=== PATIENT | female | born 1940 ===

== ENCOUNTER 2017-11-02 09:34 | Inpatient (IN) | payer MEDICARE, OTHER ==
[2017-11-02 09:34] VITALS: BMI 24.1
[2017-11-02] MEDS ORDERED: Iohexol 240 (50 ml) PO STA (09:51)
[2017-11-02] MEDS ORDERED: Sodium Chloride 0.9% 1,000 ML IV ONE ×2 (09:51)
--- NOTE | 2017-11-02 09:51 | C.PDOC ---
History Of Present Illness 77 year old female presents to the emergency department with complaints of mid abdominal pain since yesterday. She reports that the pain comes and goes and is localized. She reports nausea and vomiting, but denies having a bowel movement. She reports a past surgical history of an appendectomy, but denies fever, or UTI symptoms. MID ABD PAIN SINCE YEST. INTERMIT LOCALIZED. +NV. NO BM. PSH APPY. NO FEVER, UTI SX. EXAM MILD DIST NONTOXIC ABD +PERIUM/LOWER ABD TEND SOFT NO R/G NONDIST GOOD TURGOR REMAINDER NEG MDM ABD PAIN NV R/O OBSTRUCT. CT, LABS, PAIN AND ANTIEMETIC RX Time Seen by Provider: 11/02/17 09:43 Chief Complaint (Nursing): Abdominal Pain History Per: Patient History/Exam Limitations: no limitations Onset/Duration Of Symptoms: Days (1) Current Symptoms Are (Timing): Still Present Location Of Pain/Discomfort: Other (mid abdomen) Radiation Of Pain To:: None Quality Of Discomfort: "Pain" Associated Symptoms: Nausea, Vomiting. denies: Fever, Urinary Symptoms Past Medical History Reviewed: Historical Data, Nursing Documentation, Vital Signs Vital Signs: Last Vital Signs Temp 98.3 F 11/02/17 15:02 Pulse 65 11/02/17 15:02 Resp 16 11/02/17 15:02 BP 100/60 11/02/17 15:02 Pulse Ox 98 11/02/17 15:51 - Medical History PMH: Arthritis, Hypercholesterolemia, Hypothyroidism Denies: Chronic Kidney Disease Surgical History: Appendectomy, Cholecystectomy, Endoscopy Family History: States: No Known Family Hx - Social History Hx Alcohol Use: No Hx Substance Use: No - Immunization History Hx Tetanus Toxoid Vaccination: No Hx Influenza Vaccination: No Hx Pneumococcal Vaccination: No Review Of Systems Except As Marked, All Systems Reviewed And Found Negative. Constitutional: Negative for: Fever Gastrointestinal: Positive for: Nausea, Vomiting, Abdominal Pain Genitourinary: Negative for: Dysuria Musculoskeletal: Negative for: Back Pain Physical Exam - Physical Exam Appears: Non-toxic, In Acute Distress (mild) Skin: Warm, Dry, Other (good turgor) Head: Atraumatic, Normacephalic Eye(s): bilateral: Normal Inspection Neck: Normal, Supple Chest: Symmetrical Cardiovascular: Rhythm Regular Respiratory: Normal Breath Sounds, No Rales, No Rhonchi, No Wheezing Gastrointestinal/Abdominal: Soft, Tenderness (periumbilical/lower abdominal tenderness), No Distention, No Guarding, No Rebound Extremity: Normal ROM (all extremities) Neurological/Psych: Oriented x3, Normal Speech, Normal Cognition ED Course And Treatment - Laboratory Results Result Diagrams: 11/02/17 09:56 11/02/17 09:56 O2 Sat by Pulse Oximetry: 98 (RA) Pulse Ox Interpretation: Normal - Radiology CXR: Viewed By Me, Read By Radiologist CXR Interpretation: Yes: No Acute Disease - CT Scan/US US Abdomen Other Rad Studies (CT/US): Read By Radiologist, Radiology Report Reviewed CT/US Interpretation: IMPRESSION: Cholecystectomy. Progress Note: Plan: CT Abdomen and Pelvis with IV Contrast. EKG. CMP. Lipase. Troponin. CBC. CXR One View. Morphine 2mg IVP. NaCl IV Fluids. Zofran 4mg IVP. Urinalysis Progress - Re-Evaluation Re-evaluation Note: 11/02/17 10:57 +ELEV LIPASE. NO PRIOR HO SAME. WILL ALSO ABD US RO ACUTE JOSE 11/02/17 13:00 VIA TRANS US, CT REPORTS PENDING. PS FEELS BETTER S/P MORPHINE. PT ADVISED NEEDS ADMISSION FOR PANCREATITIS. PS CANNOT STAY IN HOSPITAL. PT STRONGLY ADVISED NEED FOR CLOSE MONITORING AND HIGH POTENTIAL FOR CLIN DETERIORATION. STATES VERBAL UNDERSTANDING OF THE RISKS/BENEFITS, STATES NOW AGREES TO ADMISSION. 11/02/17 15:[address] REPORT PENDING 11/02/17 15:50 per radiology, APPENDIX VISUALIZED ON CT. S/P JOSE ON ABD US. THIS IS CONTRARY TO PT'S STATED HO APPENDECTOMY ONLY. PS PMD = NONCPH. - Data Reviewed Data Reviewed: Lab, Diagnostic imaging, EKG, Old records Medical Decision Making Medical Decision Making: ABD PAIN NV R/O OBSTRUCT. CT, LABS, PAIN AND ANTIEMETIC RX Disposition Counseled Patient/Family Regarding: Studies Performed, Diagnosis - Disposition Disposition: HOSPITALIZED Disposition Time: 15:49 Condition: STABLE Forms: [facility] ([place]) - POA Present On Arrival: None - Clinical Impression Clinical Impression: Acute pancreatitis - Scribe Statement The provider has reviewed the documentation as recorded by the Scribe (Omar Castillo) Provider Attestation: All medical record entries made by the Scribe were at my direction and personally dictated by me. I have reviewed the chart and agree that the record accurately reflects my personal performance of the history, physical exam, medical decision making, and the department course for this patient. I have also personally directed, reviewed, and agree with the discharge instructions and disposition. Decision To Admit - Pt Status Changed To: Hospital Disposition Of: Inpatient - Admit Certification Admit to Inpatient:: After my assessment, the patient will require hospitalization for at least two midnights. This is because of the severity of symptoms shown, intensity of services needed, and/or the medical risk in this patient being treated as an outpatient. - InPatient: Physician Admission Certification:: SEE NOTE - . Bed Request Type: Regular Admitting Physician: Naya Samson Patient Diagnosis: Acute pancreatitis
[2017-11-02] MEDS ORDERED: Sodium Chloride 0.9% 1,000 ML ONE ×2 (10:00→18:13)
[2017-11-02] MEDS ORDERED: Iohexol 240 (50 ml) ONE (10:00)
[2017-11-02 10:11] LABS: BASO % 0.1 % (0.0-2.0); EOS % 0.1 % (0.0-4.0); HEMOGLOBIN 12.4 g/dL (11.0-16.0); LYMPH # 0.8 K/uL (1.0-4.3); LYMPH % 6.7 % (20.0-40.0); MEAN CELL VOLUME 94.5 fL (81.0-99.0); MEAN CORPUSCULAR HEMOGLOBIN 32.4 pg (27.0-31.0); MEAN CORPUSCULAR HGB CONC 34.3 g/dL (33.0-37.0); MEAN PLATELET VOLUME 10.1 fL (7.2-11.7); MONO # 0.7 K/uL (0.0-0.8); MONO % 5.4 % (0.0-10.0); NEUT # 10.8 K/uL (1.8-7.0); NEUT % 87.7 % (50.0-75.0); PLATELET COUNT 199 K/uL (130-400); RBC 3.81 Mil/uL (3.80-5.20); RED CELL DISTRIBUTION WIDTH 12.9 % (11.5-14.5); SQUAMOUS EPITHIAL 1 /hpf (0-5); URINE BILIRUBIN 1+ (NEGATIVE); URINE BLOOD 1+ (NEGATIVE); URINE CLARITY Clear (Clear); URINE COLOR Amber (YELLOW); URINE GLUCOSE (UA) NORMAL (Normal); URINE LEUKOCYTE ESTERASE NEG Leu/uL (Negative); URINE PROTEIN 1+ mg/dL (NEGATIVE); WHITE BLOOD COUNT 12.3 K/uL (4.8-10.8)
[2017-11-02 10:15] LABS: ALB/GLOB RATIO 1.4 (1.0-2.1); ALT/SGPT 69 U/L (9-52); AST/SGOT 93 U/L (14-36); BLOOD UREA NITROGEN 18 mg/dL (7-17); CALCIUM 8.8 mg/dl (8.6-10.4); GFR NON-AFRICAN AMERICAN > 60; LIPASE 1000 U/L (23-300)
[2017-11-02 10:47] LABS: BANDS 1 % (0-2); LYMPHOCYTE 8 % (20-40); MONOCYTE 4 % (0-10); NEUTROPHIL 87 % (50-75); PLATELET ESTIMATE NORMAL (NORMAL); TOTAL CELLS COUNTED 100
[2017-11-02 11:26] LABS: VENOUS BLOOD GAS BASE EXCESS 1.7 mmol/L (0.0-2.0); VENOUS BLOOD GAS PCO2 48 mmHg (40-60); VENOUS BLOOD GAS PO2 38 mm/Hg (30-55); VENOUS BLOOD PH 7.37 (7.32-7.43)
[2017-11-02] MEDS ORDERED: Iodixanol 320 mg/ml 150 ml Bottle IV ONE (12:38)
--- NOTE | 2017-11-02 12:51 | US ---
Date of service: 11/02/2017 HISTORY: ABD PAIN RO ACUTE JOSE COMPARISON: None. TECHNIQUE: Sonographic evaluation of the right upper quadrant of the abdomen. FINDINGS: LIVER: Measures 12.2 cm in length. Normal echogenicity of the liver parenchyma. No mass. No intrahepatic bile duct dilatation. GALLBLADDER: Cholecystectomy COMMON BILE DUCT: Measures 5.2 mm. No stones. No dilatation. PANCREAS: Pancreas poorly delineated due to body habitus and bowel gas Unremarkable as visualized. No mass. No ductal dilatation. RIGHT KIDNEY: Measures 10.2 x 4.4 x 4.6 cm in length. Normal echogenicity. No calculus, mass, or hydronephrosis. AORTA: No aneurysmal dilatation. IVC: Unremarkable. OTHER FINDINGS: None . IMPRESSION: Cholecystectomy.
--- NOTE | 2017-11-02 14:02 | RAD ---
Date of service: 11/02/2017 PROCEDURE: CHEST RADIOGRAPH, 1 VIEW HISTORY: Abdominal pain COMPARISON: None available. FINDINGS: LUNGS: Clear. Slight elevation left hemidiaphragm. PLEURA: No pneumothorax or pleural fluid seen. CARDIOVASCULAR: Normal. OSSEOUS STRUCTURES: No significant abnormalities. VISUALIZED UPPER ABDOMEN: Normal. OTHER FINDINGS: None. IMPRESSION: No active disease.
--- NOTE | 2017-11-02 15:30 | CT ---
Date of service: 11/02/2017 PROCEDURE: CT abdomen and pelvis HISTORY: Abdominal pain. Rule out obstruction in a patient with a history of appendectomy. COMPARISON: None. TECHNIQUE: Contiguous axial images of the abdomen and pelvis performed following oral and intravenous injection of approximately 100 cc Visipaque 320 contrast material. Additional 2D sagittal and coronal reformats reformats generated. This CT exam was performed using one or more of the following dose reduction techniques: Automated exposure control, adjustment of the mA and/or kV according to patient size, and/or use of iterative reconstruction technique. Contrast dose: 100 cc Visipaque 320 Radiation dose: Total exam DLP = 401.32 mGy-cm. FINDINGS: LOWER THORAX: Mild passive/dependent type atelectasis both posterior lower lung zones. Heart size is mildly enlarged. No significant pericardial effusion. LIVER: Unremarkable. No gross lesion or ductal dilatation. GALLBLADDER AND BILE DUCTS: Cholecystectomy. PANCREAS: The pancreatic head is slightly a amorphous and edematous in appearance with surrounding mild peripancreatic infiltration in the adjacent mesentery. Findings consistent with pancreatitis. SPLEEN: Spleen exhibits normal size and attenuation pattern. ADRENALS: Slightly enlarged right adrenal gland. KIDNEYS AND URETERS: Unremarkable. No stone or hydronephrosis. BLADDER: Urinary bladder is incompletely distended which may in part account for thick-walled appearance. Correlation with urinalysis recommended to exclude cystitis or UTI. REPRODUCTIVE: Unremarkable. APPENDIX: There may be a short stub of appendectomy remnant BOWEL: Evaluation of the bowel is limited due to incomplete opacification. Stomach is incompletely distended. There are a few small bowel loops that exhibit minimal distention in the left mid and upper abdomen however no evidence of acute mechanical bowel obstruction with oral contrast material seen extending into the colon to the level of the and proximal descending colon. There are scattered colonic diverticula without radiographic evidence of acute diverticulitis. PERITONEUM: Unremarkable. No fluid collection. No free air. The small fat containing bilateral inguinal hernias. LYMPH NODES: Unremarkable. No enlarged lymph nodes. VASCULATURE: Unremarkable. No aortic aneurysm. BONES: Multilevel degenerative spondylosis of the lower thoracic and lumbar spine with mild levoscoliosis. OTHER FINDINGS: None. IMPRESSION: Findings are consistent with mild acute pancreatitis. Findings suggest mild ileus. Diverticulosis without radiographic evidence of acute tear detect colitis. Cholecystectomy.
--- NOTE | 2017-11-02 16:08 | CP.PCM.HP ---
<Kamini EspinoMarcel - Last Filed: 11/02/17 17:36> History of Present Illness - History of Present Illness History of Present Illness: CC: "abdominal pain" HPI: 77 year old female with past medical history Arthritis, thyroid problem, HLD and an enlarged heart presents to the ER (arriving by bus) for abdominal pain. The pain started last night and woke her up from her sleep. She states the pain is mostly located in the left upper abdomen without radiation. She describes the pain as "pain" and she feels like her whole body is achy. She states the pain was so bad today that she could barely walk. She states she feels nauseous and vomited a small amount this morning. She states she also had chills today. This is the first time she has had abdominal pain like this. She states the last thing she ate was fish yesterday. Her last bowel movement was Friday. She also states she has gained weight over the past few months which is being worked up by her PMD. Patient denies fever, chest pain, palpations, shortness of breath, diarrhea, alcohol use, headache or pancreatitis in the past, Patient does not give permission to disclose medical information to her son Trey Lamb PMD: Dr. Wong Davis ([place], [place]) Past Medical History: Arthritis, thyroid problem, HLD - pmd stopped medication, enlarged heart Past Surgical History: cholecystectomy Medications: patient does not know - will need to confirm with PMD as patient does not know pharmacy Allergies: Aspirin - itchy throat Family History: Heart Disease - mom Social History: lives with daughter (Cierra Lamb #[phone]), denies alcohol, smoking or illicit drug use Present on Admission - Present on Admission Any Indicators Present on Admission: No Review of Systems - Constitutional Constitutional: Chills, Weight Gain. absent: Fever, Headache - EENT Eyes: absent: Blurred Vision - Cardiovascular Cardiovascular: absent: Chest Pain, Dyspnea, Palpitations, Pedal Edema, Syncope - Respiratory Respiratory: absent: Dyspnea - Gastrointestinal Gastrointestinal: Abdominal Pain, Constipation, Nausea, Vomiting. absent: Diarrhea - Genitourinary Genitourinary: absent: Dysuria - Musculoskeletal Musculoskeletal: Atrophy. absent: Numbness, Stiffness, Tingling - Neurological Neurological: absent: Dizziness, Tremor, Weakness Past Patient History - Past Medical History & Family History Past Medical History?: Yes - Past Social History Smoking Status: Never Smoked - CARDIAC Hx Hypercholesterolemia: Yes - PULMONARY Hx Respiratory Disorders: No - NEUROLOGICAL Hx Neurological Disorder: No - HEENT Hx HEENT Problems: No - RENAL Hx Chronic Kidney Disease: No - ENDOCRINE/METABOLIC Hx Hypothyroidism: Yes - HEMATOLOGICAL/ONCOLOGICAL Hx Blood Disorders: No - INTEGUMENTARY Hx Dermatological Problems: No - MUSCULOSKELETAL/RHEUMATOLOGICAL Hx Arthritis: Yes - GASTROINTESTINAL Hx Gastrointestinal Disorders: No - GENITOURINARY/GYNECOLOGICAL Hx Genitourinary Disorders: No - PSYCHIATRIC Hx Substance Use: No - SURGICAL HISTORY Hx Appendectomy: Yes Hx Cholecystectomy: Yes - ANESTHESIA Hx Anesthesia: Yes Hx Anesthesia Reactions: No Hx Malignant Hyperthermia: No Meds Allergies/Adverse Reactions: Allergies Allergy/AdvReac Type Severity Reaction Status Date / Time aspirin Allergy RASH Verified 11/02/17 09:43 Physical Exam - Constitutional Appears: Non-toxic, In Acute Distress, Younger Than Stated Age - Head Exam Head Exam: ATRAUMATIC, NORMAL INSPECTION - Eye Exam Eye Exam: EOMI, Normal appearance, PERRL Pupil Exam: NORMAL ACCOMODATION - ENT Exam ENT Exam: Mucous Membranes Moist - Respiratory Exam Respiratory Exam: Clear to Auscultation Bilateral, NORMAL BREATHING PATTERN. absent: Rales, Rhonchi, Wheezes, Stridor - Cardiovascular Exam Cardiovascular Exam: REGULAR RHYTHM, RRR, +S1, +S2 - GI/Abdominal Exam GI & Abdominal Exam: Normal Bowel Sounds, Soft, Tenderness (LUQ and LLQ tenderness ). absent: Firm, Guarding - Extremities Exam Extremities exam: Positive for: normal inspection. Negative for: pedal edema, tenderness - Neurological Exam Neurological exam: Alert, Oriented x3 - Psychiatric Exam Psychiatric exam: Anxious, Normal Affect, Normal Mood - Skin Skin Exam: Normal Color Results - Vital Signs Recent Vital Signs: Last Vital Signs Temp 98.3 F 11/02/17 15:02 Pulse 65 11/02/17 15:02 Resp 16 11/02/17 15:02 BP 100/60 11/02/17 15:02 Pulse Ox 98 11/02/17 15:51 - Labs Result Diagrams: 11/02/17 09:56 11/02/17 09:56 Labs: Laboratory Results - last 24 hr 11/02/17 11/02/17 11/02/17 09:56 09:56 09:56 WBC 12.3 H RBC 3.81 Hgb 12.4 Hct 36.0 MCV 94.5 MCH 32.4 H MCHC 34.3 RDW 12.9 Plt Count 199 MPV 10.1 Neut % (Auto) 87.7 H Lymph % (Auto) 6.7 L Haakon % (Auto) 5.4 Eos % (Auto) 0.1 Baso % (Auto) 0.1 Neut # (Auto) 10.8 H Lymph # (Auto) 0.8 L Haakon # (Auto) 0.7 Eos # (Auto) 0.0 Baso # (Auto) 0.0 Neutrophils % (Manual) 87 H Band Neutrophils % 1 Lymphocytes % (Manual) 8 L Monocytes % (Manual) 4 Platelet Estimate Normal RBC Morphology Normal pO2 VBG pH VBG pCO2 VBG HCO3 VBG Total CO2 VBG O2 Sat (Calc) VBG Base Excess VBG Potassium Glucose Lactate Sodium 140 Potassium 3.6 Chloride 102 Carbon Dioxide 29 Anion Gap 13 BUN 18 H Creatinine 0.6 L Est GFR ( Amer) > 60 Est GFR (Non-Af Amer) > 60 Random Glucose 127 H Calcium 8.8 Total Bilirubin 1.3 AST 93 H ALT 69 H Alkaline Phosphatase 101 Troponin I < 0.0120 Total Protein 6.8 Albumin 4.0 Globulin 2.8 Albumin/Globulin Ratio 1.4 Lipase 1000 H Venous Blood Potassium Urine Color Rosie Urine Clarity Clear Urine pH 5.0 Ur Specific [place] 1.032 H Urine Protein 1+ H Urine Glucose (UA) Normal Urine Ketones Trace Urine Blood 1+ H Urine Nitrate Negative Urine Bilirubin 1+ H Urine Urobilinogen 2.0 H Ur Leukocyte Esterase Neg Urine WBC (Auto) 3 Urine RBC (Auto) 27 H Ur Squamous Epith Cells 1 11/02/17 11:23 WBC RBC Hgb Hct MCV MCH MCHC RDW Plt Count MPV Neut % (Auto) Lymph % (Auto) Haakon % (Auto) Eos % (Auto) Baso % (Auto) Neut # (Auto) Lymph # (Auto) Haakon # (Auto) Eos # (Auto) Baso # (Auto) Neutrophils % (Manual) Band Neutrophils % Lymphocytes % (Manual) Monocytes % (Manual) Platelet Estimate RBC Morphology pO2 38 VBG pH 7.37 VBG pCO2 48 VBG HCO3 25.5 VBG Total CO2 29.2 H VBG O2 Sat (Calc) 75.8 H VBG Base Excess 1.7 VBG Potassium 3.8 Glucose 115 H Lactate 0.7 Sodium 139.0 Potassium Chloride 107.0 Carbon Dioxide Anion Gap BUN Creatinine Est GFR ( Amer) Est GFR (Non-Af Amer) Random Glucose Calcium Total Bilirubin AST ALT Alkaline Phosphatase Troponin I Total Protein Albumin Globulin Albumin/Globulin Ratio Lipase Venous Blood Potassium 3.8 Urine Color Urine Clarity Urine pH Ur Specific [place] Urine Protein Urine Glucose (UA) Urine Ketones Urine Blood Urine Nitrate Urine Bilirubin Urine Urobilinogen Ur Leukocyte Esterase Urine WBC (Auto) Urine RBC (Auto) Ur Squamous Epith Cells Assessment & Plan - Assessment and Plan (Free Text) Assessment: Pancreatitis - GI Consult: Dr. Montanez --> help appreciated - Lipase 1000 - NPO - Images * Abd/Pelvis CT: Findings are consistent with mild acute pancreatitis. Findings suggest mild ileus. Diverticulosis without radiographic evidence of acute tear detect colitis. Cholecystectomy. * Abdominal US: Cholecystectomy. * f/u pancreatic CT - Medications: * Zofran 4mg IV q6 prn * Morphine q6 prn for pain * NS @200cc/hr * Protonix 40mg IV q12h Leukocytosis - WBC 12.3 - secondary to pancreatitis - Continue to Monitor Hx of Enlarged Heart per patient - Chest Xray: cardiovascular: Normal heart size; no active disease Hx of HLD - patient states she is not currently taking any medications - f/u lipid panel, hA1c Hx of Hypothyroid - patient does not recall home medication - f/u TSH and free T4 Prophylaxis - Heparin 5,000 units q8SC - SCDs - Protonix 40mg IV q12h - Physical Therapy Case discussed with Dr. Mali Espino PGY-2 <Naya Samson - Last Filed: 11/02/17 20:05> Results - Vital Signs Recent Vital Signs: Last Vital Signs Temp 98.8 F 11/02/17 19:22 Pulse 69 11/02/17 19:22 Resp 20 11/02/17 19:22 BP 107/62 11/02/17 19:22 Pulse Ox 96 11/02/17 19:22 - Labs Result Diagrams: 11/02/17 09:56 11/02/17 09:56 Labs: Laboratory Results - last 24 hr 11/02/17 11/02/17 11/02/17 09:56 09:56 09:56 WBC 12.3 H RBC 3.81 Hgb 12.4 Hct 36.0 MCV 94.5 MCH 32.4 H MCHC 34.3 RDW 12.9 Plt Count 199 MPV 10.1 Neut % (Auto) 87.7 H Lymph % (Auto) 6.7 L Haakon % (Auto) 5.4 Eos % (Auto) 0.1 Baso % (Auto) 0.1 Neut # (Auto) 10.8 H Lymph # (Auto) 0.8 L Haakon # (Auto) 0.7 Eos # (Auto) 0.0 Baso # (Auto) 0.0 Neutrophils % (Manual) 87 H Band Neutrophils % 1 Lymphocytes % (Manual) 8 L Monocytes % (Manual) 4 Platelet Estimate Normal RBC Morphology Normal pO2 VBG pH VBG pCO2 VBG HCO3 VBG Total CO2 VBG O2 Sat (Calc) VBG Base Excess VBG Potassium Glucose Lactate Sodium 140 Potassium 3.6 Chloride 102 Carbon Dioxide 29 Anion Gap 13 BUN 18 H Creatinine 0.6 L Est GFR ( Amer) > 60 Est GFR (Non-Af Amer) > 60 Random Glucose 127 H Calcium 8.8 Total Bilirubin 1.3 AST 93 H ALT 69 H Alkaline Phosphatase 101 Troponin I < 0.0120 Total Protein 6.8 Albumin 4.0 Globulin 2.8 Albumin/Globulin Ratio 1.4 Triglycerides Cholesterol LDL Cholesterol Direct HDL Cholesterol Lipase 1000 H Venous Blood Potassium Urine Color Rosie Urine Clarity Clear Urine pH 5.0 Ur Specific [place] 1.032 H Urine Protein 1+ H Urine Glucose (UA) Normal Urine Ketones Trace Urine Blood 1+ H Urine Nitrate Negative Urine Bilirubin 1+ H Urine Urobilinogen 2.0 H Ur Leukocyte Esterase Neg Urine WBC (Auto) 3 Urine RBC (Auto) 27 H Ur Squamous Epith Cells 1 11/02/17 11/02/17 11:23 18:44 WBC RBC Hgb Hct MCV MCH MCHC RDW Plt Count MPV Neut % (Auto) Lymph % (Auto) Haak[place] % (Auto) Eos % (Auto) Baso % (Auto) Neut # (Auto) Lymph # (Auto) Haakon # (Auto) Eos # (Auto) Baso # (Auto) Neutrophils % (Manual) Band Neutrophils % Lymphocytes % (Manual) Monocytes % (Manual) Platelet Estimate RBC Morphology pO2 38 VBG pH 7.37 VBG pCO2 48 VBG HCO3 25.5 VBG Total CO2 29.2 H VBG O2 Sat (Calc) 75.8 H VBG Base Excess 1.7 VBG Potassium 3.8 Glucose 115 H Lactate 0.7 Sodium 139.0 Potassium Chloride 107.0 Carbon Dioxide Anion Gap BUN Creatinine Est GFR ( Amer) Est GFR (Non-Af Amer) Random Glucose Calcium Total Bilirubin AST ALT Alkaline Phosphatase Troponin I Total Protein Albumin Globulin Albumin/Globulin Ratio Triglycerides 61 Cholesterol 181 LDL Cholesterol Direct 95 HDL Cholesterol 63 Lipase Venous Blood Potassium 3.8 Urine Color Urine Clarity Urine pH Ur Specific [place] Urine Protein Urine Glucose (UA) Urine Ketones Urine Blood Urine Nitrate Urine Bilirubin Urine Urobilinogen Ur Leukocyte Esterase Urine WBC (Auto) Urine RBC (Auto) Ur Squamous Epith Cells Attending/Attestation - Attestation I have personally seen and examined this patient.: Yes I have fully participated in the care of the patient.: Yes I have reviewed all pertinent clinical information: Yes Notes (Text): Patient was seen and examined with Dr Espino. History taken from the patient.Denies history of alcohol use,denies past history of pancreatitis. Patient had cholecystectomy in the past.Denies fever 1.Acute pancreatitis and abdominal pain. Keep NPO,IV fluids,pain meds,Pancreatic CT,GI consult d/w resident and I agree with the assessment and the plan
[2017-11-02] MEDS ORDERED: Morphine 4 MG/ML VIAL IV PRN (16:59)
[2017-11-02] MEDS: Sodium Chloride 0.9% 1,000 ML IV SCH ×2 (18:15→23:00)
[2017-11-02 18:54] LABS: HDL CHOLESTEROL 63 mg/dL (30-70)
[2017-11-02 19:04] LABS: LDL CHOLESTEROL 95 mg/dL (0-129)
[2017-11-02 19:23] VITALS: RESP 20
[2017-11-03] MEDS: Sodium Chloride 0.9% 1,000 ML IV SCH ×5 (04:24→19:20)
[2017-11-03 08:48] LABS: ALB/GLOB RATIO 1.1 (1.0-2.1); ALBUMIN 3.1 g/dL (3.5-5.0); ALT/SGPT 53 U/L (9-52); AST/SGOT 46 U/L (14-36); BASO # 0.1 K/uL (0.0-0.2); BASO % 0.6 % (0.0-2.0); BLOOD UREA NITROGEN 8 mg/dL (7-17); CALCIUM 8.2 mg/dl (8.6-10.4); EOS % 0.4 % (0.0-4.0); GFR NON-AFRICAN AMERICAN > 60; HEMOGLOBIN 11.4 g/dL (11.0-16.0); LYMPH # 1.1 K/uL (1.0-4.3); LYMPH % 11.8 % (20.0-40.0); MEAN CELL VOLUME 94.1 fL (81.0-99.0); MEAN CORPUSCULAR HEMOGLOBIN 32.6 pg (27.0-31.0); MEAN CORPUSCULAR HGB CONC 34.7 g/dL (33.0-37.0); MEAN PLATELET VOLUME 11.2 fL (7.2-11.7); MONO # 0.6 K/uL (0.0-0.8); MONO % 7.2 % (0.0-10.0); NEUT # 7.2 K/uL (1.8-7.0); RBC 3.5 Mil/uL (3.80-5.20); RED CELL DISTRIBUTION WIDTH 13.2 % (11.5-14.5)
[2017-11-03] MEDS ORDERED: Iohexol 240 (50 ml) PO ONE (12:10)
[2017-11-03] MEDS ORDERED: Iodixanol 320 MG/ML 100 ML BOTTLE IV ONE (13:37)
--- NOTE | 2017-11-03 17:45 | CT ---
Date of service: 11/03/2017 PROCEDURE: CT abdomen with oral and intravenous contrast HISTORY: Pancreatitis COMPARISON: Comparison made with prior CT scan abdomen and pelvis 11/02/2017 TECHNIQUE: Contiguous axial images of the abdomen performed following oral and intravenous injection of approximately 100 cc Visipaque 320 contrast material. Additional 2D sagittal and coronal reformats generated. This CT exam was performed using one or more of the following dose reduction techniques: Automated exposure control, adjustment of the mA and/or kV according to patient size, and/or use of iterative reconstruction technique. Radiation dose: Total exam DLP = 818.72 mGy-cm.. This CT exam was performed using one or more of the following dose reduction techniques: Automated exposure control, adjustment of the mA and/or kV according to patient size, and/or use of iterative reconstruction technique.. FINDINGS: LOWER THORAX: Mild passive/dependent type atelectasis both posterior lower lung [place]. Heart is mildly enlarged unchanged. LIVER: Unremarkable. No gross lesion or ductal dilatation. GALLBLADDER AND BILE DUCTS: Cholecystectomy PANCREAS: Questionable minimal infiltration changes/edema head of the pancreas. Rule out on mild acute pancreatitis SPLEEN: Unremarkable. No splenomegaly. ADRENALS: Unremarkable. KIDNEYS AND URETERS: Unremarkable. No stone or hydronephrosis. BLADDER: Not visualized REPRODUCTIVE: Not visualized APPENDIX: Unremarkable. BOWEL: Multiple colonic diverticula again seen along descending and sigmoid colon. There is an area of wall thickening with what may represent of adjacent phlegmonous changes and surrounding infiltration. Bubbles of air are also present this region. The possibility of a perforation must be considered as well. PERITONEUM: As above LYMPH NODES: Unremarkable. No enlarged lymph nodes. VASCULATURE: Unremarkable. No aortic aneurysm. BONES: Multilevel degenerative spondylosis of the lower thoracic and lumbar spine. OTHER FINDINGS: None. IMPRESSION: Findings are consistent with an acute diverticulitis involving a short segment of the distal descending/proximal sigmoid colon junction with phlegmonous changes surrounding infiltration and a few bubbles of air with questionable perforation. Minimal edematous appearance of the head of the pancreas. Possibility of a mild acute pancreatitis not excluded. 3T nurse Rob informed of these findings at approximately 5:30 p.m. with written down and read back verification.
--- NOTE | 2017-11-03 18:05 | CP.PCM.CON ---
<ClevelandstevenstevoJassi - Last Filed: 11/03/17 18:06> History of Present Illness - History of Present Illness History of Present Illness: GI Fellow PGY4, consult note Yvette Acevedo is a very pleasant 77F with hx of arthritis, HLD, thyroid, gastritis, diverticulosis and cholecystectomy presenting with acute abdominal pain. The pain started 2 days ago, waking her from sleep. It was severe, non- radiating located in the upper stomach. She came to the ED where she was found to have pancreatitis and given IV fluids, pain meds and made NPO. She denies etoh, previous pancreatitis, recent medication changes. CT showed mild pancreatitis of the pancreatic head. US did not show stones or dilated CBD. PMHx - see above PSHx - lap robinson. EGD and CSPY in 2016 which showed gastritis and diverticulosis. Pathology negative. FMHx - unremarkable SocHx - denies smoking and etoh use. She lives in home with daughter. 12pt ROS neg except for above. Past Patient History - Past Medical History & Family History Past Medical History?: Yes - Past Social History Smoking Status: Never Smoked - CARDIAC Hx Hypercholesterolemia: Yes - PULMONARY Hx Respiratory Disorders: No - NEUROLOGICAL Hx Neurological Disorder: No - HEENT Hx HEENT Problems: No - RENAL Hx Chronic Kidney Disease: No - ENDOCRINE/METABOLIC Hx Hypothyroidism: Yes - HEMATOLOGICAL/ONCOLOGICAL Hx Blood Disorders: No - INTEGUMENTARY Hx Dermatological Problems: No - MUSCULOSKELETAL/RHEUMATOLOGICAL Hx Arthritis: Yes - GASTROINTESTINAL Hx Gastrointestinal Disorders: No - GENITOURINARY/GYNECOLOGICAL Hx Genitourinary Disorders: No - PSYCHIATRIC Hx Substance Use: No - SURGICAL HISTORY Hx Appendectomy: Yes Hx Cholecystectomy: Yes - ANESTHESIA Hx Anesthesia: Yes Hx Anesthesia Reactions: No Hx Malignant Hyperthermia: No Has any member of the family had a problem w/ anesthesia?: No Meds Allergies/Adverse Reactions: Allergies Allergy/AdvReac Type Severity Reaction Status Date / Time aspirin Allergy RASH Verified 11/02/17 09:43 - Medications Medications: Current Medications Heparin Sodium (Porcine) (Heparin) 5,000 units SC Q8 [facility] Last Admin: 11/03/17 13:09 Dose: 5,000 units Sodium Chloride (Sodium Chloride 0.9%) 1,000 mls @ 200 mls/hr IV .Q5H [facility] Last Admin: 11/03/17 15:45 Dose: 200 mls/hr Morphine Sulfate (Morphine) 2 mg IV Q6 PRN PRN Reason: Pain, severe (8-10) Ondansetron HCl (Zofran Inj) 4 mg IVP Q6 PRN PRN Reason: Nausea/Vomiting Pantoprazole Sodium (Protonix Inj) 40 mg IVP DAILY [facility] Last Admin: 11/03/17 09:33 Dose: 40 mg Physical Exam - Constitutional Appears: Well, Non-toxic, No Acute Distress - Head Exam Head Exam: NORMAL INSPECTION - Eye Exam Eye Exam: Normal appearance - ENT Exam ENT Exam: Mucous Membranes Moist - Respiratory Exam Respiratory Exam: Clear to Auscultation Bilateral, NORMAL BREATHING PATTERN. absent: Wheezes - Cardiovascular Exam Cardiovascular Exam: REGULAR RHYTHM - GI/Abdominal Exam GI & Abdominal Exam: Normal Bowel Sounds, Soft. absent: Distended, Organomegaly Additional comments: Mild tenderness to deep palpation of epigastrium and LLQ. - Extremities Exam Extremities exam: Positive for: normal inspection - Neurological Exam Neurological exam: Alert, CN II-XII Intact, Oriented x3 - Psychiatric Exam Psychiatric exam: Normal Affect, Normal Mood - Skin Skin Exam: Dry, Normal Color Results - Vital Signs Recent Vital Signs: Last Vital Signs Temp 98.0 F 11/03/17 15:38 Pulse 64 11/03/17 15:38 Resp 20 11/03/17 15:38 BP 111/67 11/03/17 15:38 Pulse Ox 95 11/03/17 15:38 - Labs Result Diagrams: 11/03/17 08:16 11/03/17 08:16 Labs: Laboratory Results - last 24 hr 11/02/17 11/03/17 11/03/17 18:44 08:16 08:16 WBC RBC Hgb Hct MCV MCH MCHC RDW Plt Count MPV Neut % (Auto) Lymph % (Auto) Rowan % (Auto) Eos % (Auto) Baso % (Auto) Neut # (Auto) Lymph # (Auto) Rowan # (Auto) Eos # (Auto) Baso # (Auto) Sodium 140 Potassium 3.7 Chloride 106 Carbon Dioxide 27 Anion Gap 10 BUN 8 Creatinine 0.5 L Est GFR ( Amer) > 60 Est GFR (Non-Af Amer) > 60 Random Glucose 95 Hemoglobin A1c 5.6 Calcium 8.2 L Phosphorus 2.1 L Magnesium 2.0 Total Bilirubin 1.4 H AST 46 H D ALT 53 H D Alkaline Phosphatase 71 Total Protein 5.8 L Albumin 3.1 L D Globulin 2.7 Albumin/Globulin Ratio 1.1 Triglycerides 61 Cholesterol 181 LDL Cholesterol Direct 95 HDL Cholesterol 63 Free T4 TSH 3rd Generation 2.88 11/03/17 11/03/17 08:16 08:16 WBC 9.0 RBC 3.50 L Hgb 11.4 Hct 33.0 L MCV 94.1 MCH 32.6 H MCHC 34.7 RDW 13.2 Plt Count 174 MPV 11.2 Neut % (Auto) 80.0 H Lymph % (Auto) 11.8 L Rowan % (Auto) 7.2 Eos % (Auto) 0.4 Baso % (Auto) 0.6 Neut # (Auto) 7.2 H Lymph # (Auto) 1.1 Rowan # (Auto) 0.6 Eos # (Auto) 0.0 Baso # (Auto) 0.1 Sodium Potassium Chloride Carbon Dioxide Anion Gap BUN Creatinine Est GFR ( Amer) Est GFR (Non-Af Amer) Random Glucose Hemoglobin A1c Calcium Phosphorus Magnesium Total Bilirubin AST ALT Alkaline Phosphatase Total Protein Albumin Globulin Albumin/Globulin Ratio Triglycerides Cholesterol LDL Cholesterol Direct HDL Cholesterol Free T4 0.97 TSH 3rd Generation Assessment & Plan - Assessment and Plan (Free Text) Assessment: 77F with hx of lap robinson, HLD presenting with acute abdominal pain found to have pancreatitis. Repeat CT imagining shows diverticulitis with ?microperf. #Acute mild pancreatitis #Acute diverticulitis #Gatritis #HLD #s/p robinson PLAN: -No signs of obvious cause of pancreatitis (cbd normal, TAGs normal, no obvious meds) -If pancreatitis returns, recommend extensive w/u of pancreatic malignancy -Repeat CT scan shows diverticulitis, note that it was noted that there was no diverticulitis on previous CT. -Okay to start clear liquid diet -Recommend cipro and flagyl for diverticulitis -Recommend PPI continued -Continue pain management. -No planned endoscopic procedures. - Date & Time Date: 11/03/17 Time: 18:11 <Jerald Taveras - Last Filed: 11/03/17 19:45> Meds - Medications Medications: Current Medications Heparin Sodium (Porcine) (Heparin) 5,000 units SC Q8 [facility] Last Admin: 11/03/17 13:09 Dose: 5,000 units Sodium Chloride (Sodium Chloride 0.9%) 1,000 mls @ 200 mls/hr IV .Q5H [facility] Last Admin: 11/03/17 19:20 Dose: Not Given Ciprofloxacin (Cipro 400mg/200ml Dsw) 400 mg in 200 mls @ 133 mls/hr IVPB Q12H [facility] PRN Reason: Protocol Last Admin: 11/03/17 19:14 Dose: 133 mls/hr Metronidazole (Flagyl) 500 mg in 100 mls @ 100 mls/hr IVPB Q8H [facility] PRN Reason: Protocol Last Admin: 11/03/17 19:13 Dose: 100 mls/hr Morphine Sulfate (Morphine) 2 mg IV Q6 PRN PRN Reason: Pain, severe (8-10) Ondansetron HCl (Zofran Inj) 4 mg IVP Q6 PRN PRN Reason: Nausea/Vomiting Pantoprazole Sodium (Protonix Inj) 40 mg IVP DAILY [facility] Last Admin: 11/03/17 09:33 Dose: 40 mg Results - Vital Signs Recent Vital Signs: Last Vital Signs Temp 98.0 F 11/03/17 15:38 Pulse 64 11/03/17 15:38 Resp 20 11/03/17 15:38 BP 111/67 11/03/17 15:38 Pulse Ox 95 11/03/17 15:38 - Labs Result Diagrams: 11/03/17 08:16 11/03/17 08:16 Labs: Laboratory Results - last 24 hr 11/03/17 11/03/17 11/03/17 08:16 08:16 08:16 WBC RBC Hgb Hct MCV MCH MCHC RDW Plt Count MPV Neut % (Auto) Lymph % (Auto) Rowan % (Auto) Eos % (Auto) Baso % (Auto) Neut # (Auto) Lymph # (Auto) Rowan # (Auto) Eos # (Auto) Baso # (Auto) Sodium 140 Potassium 3.7 Chloride 106 Carbon Dioxide 27 Anion Gap 10 BUN 8 Creatinine 0.5 L Est GFR ( Amer) > 60 Est GFR (Non-Af Amer) > 60 Random Glucose 95 Hemoglobin A1c 5.6 Calcium 8.2 L Phosphorus 2.1 L Magnesium 2.0 Total Bilirubin 1.4 H AST 46 H D ALT 53 H D Alkaline Phosphatase 71 Total Protein 5.8 L Albumin 3.1 L D Globulin 2.7 Albumin/Globulin Ratio 1.1 Free T4 0.97 TSH 3rd Generation 2.88 11/03/17 08:16 WBC 9.0 RBC 3.50 L Hgb 11.4 Hct 33.0 L MCV 94.1 MCH 32.6 H MCHC 34.7 RDW 13.2 Plt Count 174 MPV 11.2 Neut % (Auto) 80.0 H Lymph % (Auto) 11.8 L Rowan % (Auto) 7.2 Eos % (Auto) 0.4 Baso % (Auto) 0.6 Neut # (Auto) 7.2 H Lymph # (Auto) 1.1 Rowan # (Auto) 0.6 Eos # (Auto) 0.0 Baso # (Auto) 0.1 Sodium Potassium Chloride Carbon Dioxide Anion Gap BUN Creatinine Est GFR ( Amer) Est GFR (Non-Af Amer) Random Glucose Hemoglobin A1c Calcium Phosphorus Magnesium Total Bilirubin AST ALT Alkaline Phosphatase Total Protein Albumin Globulin Albumin/Globulin Ratio Free T4 TSH 3rd Generation Attending/Attestation - Attestation I have personally seen and examined this patient.: Yes I have fully participated in the care of the patient.: Yes I have reviewed all pertinent clinical information: Yes Notes (Text): 11/03/17 19:41 Chart reviewed. Patient interviewed and examined. Awake and alert. NAD. Non- toxic. LUQ/epigastric rebound tenderness with guarding w/o rigidity. CT pancreas findings noted. Abx with GI coverage and close monitoring for signs of sepsis and surgical abdomen. Assessment and recommendations, as documented above , were discussed with Dr. Duong. Discussed with the pt's nurse.
--- NOTE | 2017-11-03 19:01 | CP.PCM.PN ---
Subjective - Date & Time of Evaluation Date of Evaluation: 11/03/17 Time of Evaluation: 18:50 - Subjective Subjective: PGY-[address] Dukes Patient seen and examined at bedside. No acute events overnight. Patient has been kept NPO. Patient still complaining of abdominal pain but it has much improved. Patient states she has had a headache as a result of her roommate and roommate's family who were being very loud throughout the day and night. Otherwise patient has no other complaints. Objective - Vital Signs/Intake and Output Vital Signs (last 24 hours): Temp Pulse Resp BP Pulse Ox 98.0 F 64 20 111/67 95 11/03/17 15:38 11/03/17 15:38 11/03/17 15:38 11/03/17 15:38 11/03/17 15:38 Intake and Output: 11/03/17 11/03/17 06:59 18:59 Intake Total 800 2800 Balance 800 2800 - Medications Medications: Current Medications Heparin Sodium (Porcine) (Heparin) 5,000 units SC Q8 [facility] Last Admin: 11/03/17 13:09 Dose: 5,000 units Sodium Chloride (Sodium Chloride 0.9%) 1,000 mls @ 200 mls/hr IV .Q5H [facility] Last Admin: 11/03/17 15:45 Dose: 200 mls/hr Ciprofloxacin (Cipro 400mg/200ml Dsw) 400 mg in 200 mls @ 133 mls/hr IVPB Q12H [facility] PRN Reason: Protocol Metronidazole (Flagyl) 500 mg in 100 mls @ 100 mls/hr IVPB Q8H [facility] PRN Reason: Protocol Morphine Sulfate (Morphine) 2 mg IV Q6 PRN PRN Reason: Pain, severe (8-10) Ondansetron HCl (Zofran Inj) 4 mg IVP Q6 PRN PRN Reason: Nausea/Vomiting Pantoprazole Sodium (Protonix Inj) 40 mg IVP DAILY [facility] Last Admin: 11/03/17 09:33 Dose: 40 mg - Labs Labs: 11/03/17 08:16 11/03/17 08:16 - Head Exam Head Exam: ATRAUMATIC, NORMAL INSPECTION - Eye Exam Eye Exam: EOMI, Normal appearance Pupil Exam: NORMAL ACCOMODATION - ENT Exam ENT Exam: Mucous Membranes Moist, Normal Exam - Neck Exam Neck Exam: Full ROM, Normal Inspection - Respiratory Exam Respiratory Exam: Clear to Ausculation Bilateral, NORMAL BREATHING PATTERN - GI/Abdominal Exam GI & Abdominal Exam: Soft, Tenderness (+Mild epigastric tenderness to palpation) , Normal Bowel Sounds - Extremities Exam Extremities Exam: Full ROM, Normal Inspection. absent: Joint Swelling, Pedal Edema - Neurological Exam Neurological Exam: Alert, Awake, CN II-XII Intact, Normal Gait, Oriented x3 - Skin Skin Exam: Dry, Intact, Warm Assessment and Plan - Assessment and Plan (Free Text) Assessment: Diverticulitis/Pancreatitis - GI Consult: Dr. Montanez --> help appreciated - Lipase 1000 - NPO - Images * Abd/Pelvis CT 11/02: Findings are consistent with mild acute pancreatitis. Findings suggest mild ileus. Diverticulosis without radiographic evidence of acute tear detect colitis. Cholecystectomy. * Abdominal US 11/02: Cholecystectomy. * Pancreatic CT 11/02: "Findings are consistent with an acute diverticulitis involving a short segment of the distal descending/proximal sigmoid colon junction with phlegmous changes surrounding infiltration and a few bubbles of air with questionable perforation. Minimal edematous appearance of the head of the pancreas. Possibility of a mild acute pancreatitis not excluded." - Medications: * Zofran 4mg IV q6 prn * Morphine q6 prn for pain * NS @200cc/hr * Protonix 40mg IV q12h * Cipro 400 mg IVPB * Flagyl 500mg IVPB -Following discharge from the hospital, will recommend patient follow up with colonoscopy as outpatient in 6-8 weeks Leukocytosis - WBC 12.3 - secondary to pancreatitis - Continue to Monitor Hx of Enlarged Heart per patient - Chest Xray: cardiovascular: Normal heart size; no active disease Hx of HLD - patient states she is not currently taking any medications - f/u lipid panel, hA1c Hx of Hypothyroid - patient does not recall home medication - f/u TSH and free T4 Prophylaxis - Heparin 5,000 units q8SC - SCDs - Protonix 40mg IV q12h - Physical Therapy Case discussed with Dr. Roseline Lindsay PGY-1
[2017-11-03] MEDS: metroNIDAZOLE IV 500 mg/100 ml 500 MG/100 ML BAG IVPB SCH (19:13)
[2017-11-03] MEDS: Ciprofloxacin 400mg/200ml D5W 400 MG/200 ML BAG IVPB SCH (19:14)
[2017-11-04] MEDS: metroNIDAZOLE IV 500 mg/100 ml 500 MG/100 ML BAG IVPB SCH ×2 (03:05→10:04)
[2017-11-04] MEDS: Sodium Chloride 0.9% 1,000 ML IV SCH ×3 (06:03→09:59)
[2017-11-04] MEDS: Ciprofloxacin 400mg/200ml D5W 400 MG/200 ML BAG IVPB SCH (06:04)
[2017-11-04 07:23] LABS: BASO % 0.7 % (0.0-2.0); EOS # 0.1 K/uL (0.0-0.7); EOS % 1.1 % (0.0-4.0); HEMOGLOBIN 10.5 g/dL (11.0-16.0); LYMPH # 1.3 K/uL (1.0-4.3); LYMPH % 19.2 % (20.0-40.0); MEAN CELL VOLUME 93.3 fL (81.0-99.0); MEAN CORPUSCULAR HEMOGLOBIN 32.4 pg (27.0-31.0); MEAN CORPUSCULAR HGB CONC 34.8 g/dL (33.0-37.0); MEAN PLATELET VOLUME 10.4 fL (7.2-11.7); MONO # 0.6 K/uL (0.0-0.8); MONO % 8.7 % (0.0-10.0); NEUT # 4.7 K/uL (1.8-7.0); NEUT % 70.3 % (50.0-75.0); RBC 3.24 Mil/uL (3.80-5.20); RED CELL DISTRIBUTION WIDTH 12.9 % (11.5-14.5); WHITE BLOOD COUNT 6.7 K/uL (4.8-10.8)
[2017-11-04 07:39] LABS: ALB/GLOB RATIO 1.3 (1.0-2.1); ALBUMIN 3.1 g/dL (3.5-5.0); ALT/SGPT 50 U/L (9-52); AST/SGOT 40 U/L (14-36); BLOOD UREA NITROGEN 5 mg/dL (7-17); CALCIUM 8.2 mg/dl (8.6-10.4); GFR NON-AFRICAN AMERICAN > 60
[2017-11-04 08:52] VITALS: PULSE 67; O2SAT 95
--- NOTE | 2017-11-04 11:43 | CP.PCM.PN ---
<Yudi Means - Last Filed: 11/04/17 11:46> Subjective - Date & Time of Evaluation Date of Evaluation: 11/04/17 Time of Evaluation: 11:39 - Subjective Subjective: Gastroenterology Fellow/PGY6 Progress Note Patient feels well. Notes resolved abdominal pain. Tolerating clear liquid diet. Formed stool this morning with three loose stools yesterday. A 12-point review of systems negative except for as above. Objective - Vital Signs/Intake and Output Vital Signs (last 24 hours): Temp Pulse Resp BP Pulse Ox 97.4 F L 67 20 115/67 95 11/04/17 08:00 11/04/17 08:00 11/04/17 08:00 11/04/17 08:00 11/04/17 08:00 Intake and Output: 11/04/17 11/04/17 06:59 18:59 Intake Total 3550 Balance 3550 - Medications Medications: Current Medications Heparin Sodium (Porcine) (Heparin) 5,000 units SC Q8 [facility] Last Admin: 11/04/17 06:06 Dose: 5,000 units Sodium Chloride (Sodium Chloride 0.9%) 1,000 mls @ 200 mls/hr IV .Q5H [facility] Last Admin: 11/04/17 09:59 Dose: Not Given Ciprofloxacin (Cipro 400mg/200ml Dsw) 400 mg in 200 mls @ 133 mls/hr IVPB Q12H [facility] PRN Reason: Protocol Last Admin: 11/04/17 06:04 Dose: 133 mls/hr Metronidazole (Flagyl) 500 mg in 100 mls @ 100 mls/hr IVPB Q8H [facility] PRN Reason: Protocol Last Admin: 11/04/17 10:04 Dose: 100 mls/hr Morphine Sulfate (Morphine) 2 mg IV Q6 PRN PRN Reason: Pain, severe (8-10) Ondansetron HCl (Zofran Inj) 4 mg IVP Q6 PRN PRN Reason: Nausea/Vomiting Pantoprazole Sodium (Protonix Inj) 40 mg IVP DAILY [facility] Last Admin: 11/04/17 10:04 Dose: 40 mg - Labs Labs: 11/04/17 07:04 11/04/17 07:04 - Constitutional Appears: Non-toxic, No Acute Distress - Head Exam Head Exam: ATRAUMATIC, NORMOCEPHALIC - Eye Exam Eye Exam: EOMI, PERRL Pupil Exam: PERRL. absent: Miosis, Mydriatic - ENT Exam ENT Exam: Mucous Membranes Moist, Normal Oropharynx - Neck Exam Neck Exam: Full ROM, Normal Inspection - Respiratory Exam Respiratory Exam: Clear to Ausculation Bilateral. absent: Rales, Rhonchi, Wheezes - Cardiovascular Exam Cardiovascular Exam: RRR, +S1, +S2. absent: Gallop, Rubs - GI/Abdominal Exam GI & Abdominal Exam: Soft, Tenderness, Normal Bowel Sounds. absent: Distended, Firm, Guarding, Rigid, Organomegaly, Rebound Additional comments: mild discomfort to LLQ palpation - Extremities Exam Extremities Exam: Normal Inspection. absent: Pedal Edema - Neurological Exam Neurological Exam: Alert, Awake - Psychiatric Exam Psychiatric exam: Normal Affect, Normal Mood - Skin Skin Exam: Dry, Intact, Normal Color, Warm Assessment and Plan - Assessment and Plan (Free Text) Assessment: 77 year old femal with PMH of laparoscopic cholecystectomy, HLD, Hypothyroidism , and arthritis presenting with abdominal pain. Active treatment of acute mild pancreatitis of unclear etiology and descending/sigmoid diverticulitis with possible microperforation. Prior EGD and colonoscopy 2016 showed gastritis and diverticulosis from tranverse to sigmoid colon). Plan: -denies new medications, TGs 61, normal CBD -advance to low residue low fat diet -continue cipro/Flagyl for diverticulitis -outpatient follow up to evaluate clinical symptoms and assess need for further workup of pancreatitis etiology and diverticulitis with Dr. Dhaliwal -if diet tolerated, okay to discharge from GI standpoint -thank you for the opportunity to participate in the care of this patient, please contact with questions or concerns. <Dae Montanez - Last Filed: 11/04/17 16:27> Objective - Vital Signs/Intake and Output Vital Signs (last 24 hours): Temp Pulse Resp BP Pulse Ox 98.9 F 67 20 110/62 95 11/04/17 15:51 11/04/17 15:51 11/04/17 15:51 11/04/17 15:51 11/04/17 15:51 Intake and Output: 11/04/17 11/04/17 06:59 18:59 Intake Total 3550 1750 Balance 3550 1750 - Medications Medications: Current Medications Heparin Sodium (Porcine) (Heparin) 5,000 units SC Q8 [facility] Last Admin: 11/04/17 13:39 Dose: 5,000 units Ciprofloxacin (Cipro 400mg/200ml Dsw) 400 mg in 200 mls @ 133 mls/hr IVPB Q12H [facility] PRN Reason: Protocol Last Admin: 11/04/17 06:04 Dose: 133 mls/hr Metronidazole (Flagyl) 500 mg in 100 mls @ 100 mls/hr IVPB Q8H [facility] PRN Reason: Protocol Last Admin: 11/04/17 10:04 Dose: 100 mls/hr Sodium Chloride (Sodium Chloride 0.9%) 1,000 mls @ 75 mls/hr IV .[id number] [facility] Last Admin: 11/04/17 13:56 Dose: 75 mls/hr Morphine Sulfate (Morphine) 2 mg IV Q6 PRN PRN Reason: Pain, severe (8-10) Ondansetron HCl (Zofran Inj) 4 mg IVP Q6 PRN PRN Reason: Nausea/Vomiting Pantoprazole Sodium (Protonix Inj) 40 mg IVP DAILY [facility] Last Admin: 11/04/17 10:04 Dose: 40 mg - Labs Labs: 11/04/17 07:04 11/04/17 07:04 Attending/Attestation - Attestation I have personally seen and examined this patient.: Yes I have fully participated in the care of the patient.: Yes I have reviewed all pertinent clinical information, including history, physical exam and plan: Yes Notes (Text): 11/04/17 16:25 I have seen and examined patient with GI fellow. No acute events overnight, her abdominal pain has resolved. She denies nausea, vomiting, fever/chills. Tolerating PO diet without difficulty. Review of vitals from today are normal. Abdominal pain Pancreatitis Diverticulitis - Advance diet as tolerated - Continue with antibiotic therapy to complete 10 day course - Suggest additional outpatient evaluation and workup of pancreatitis of unclear etiology - From GI standpoint ok to discharge with additional outpatient follow up. Will sign off case, please reconsult as necessary, thank you.
[2017-11-04] MEDS ORDERED: Sodium Chloride 0.9% 1,000 ML IV SCH (13:28)
[2017-11-04] MEDS ORDERED: Potassium Chloride 20 mEq ER Tab PO ONE (14:00)
--- NOTE | 2017-11-04 14:23 | CP.PCM.DIS ---
<Yao Falcon M - Last Filed: 11/04/17 18:14> Provider - Provider Date of Admission: 11/02/17 15:51 Attending physician: Leo Dukes DO Consults: Dr. Montanez Time Spent in preparation of Discharge (in minutes): 45 Diagnosis - Discharge Diagnosis (1) Diverticulitis Status: Acute Comment: Patient felt much better after IV fluids & IV abx. Patient tolerated diet. D/C on Abx Flagyl 500 mg Q8 & Ciproflaxacin 250 mg Q12 for 7 days & probiotics Hospital Course - Lab Results Lab Results: Most Recent Lab Values WBC 6.7 K/uL (4.8-10.8) 11/04/17 07:04 RBC 3.24 Mil/uL (3.80-5.20) L 11/04/17 07:04 Hgb 10.5 g/dL (11.0-16.0) L 11/04/17 07:04 Hct 30.2 % (34.0-47.0) L 11/04/17 07:04 MCV 93.3 fL (81.0-99.0) 11/04/17 07:04 MCH 32.4 pg (27.0-31.0) H 11/04/17 07:04 MCHC 34.8 g/dL (33.0-37.0) 11/04/17 07:04 RDW 12.9 % (11.5-14.5) 11/04/17 07:04 Plt Count 177 K/uL (130-400) 11/04/17 07:04 MPV 10.4 fL (7.2-11.7) 11/04/17 07:04 Neut % (Auto) 70.3 % (50.0-75.0) 11/04/17 07:04 Lymph % (Auto) 19.2 % (20.0-40.0) L 11/04/17 07:04 [place] % (Auto) 8.7 % (0.0-10.0) 11/04/17 07:04 Eos % (Auto) 1.1 % (0.0-4.0) 11/04/17 07:04 Baso % (Auto) 0.7 % (0.0-2.0) 11/04/17 07:04 Neut # (Auto) 4.7 K/uL (1.8-7.0) 11/04/17 07:04 Lymph # (Auto) 1.3 K/uL (1.0-4.3) 11/04/17 07:04 [place] # (Auto) 0.6 K/uL (0.0-0.8) 11/04/17 07:04 Eos # (Auto) 0.1 K/uL (0.0-0.7) 11/04/17 07:04 Baso # (Auto) 0.0 K/uL (0.0-0.2) 11/04/17 07:04 Neutrophils % (Manual) 87 % (50-75) H 11/02/17 09:56 Band Neutrophils % 1 % (0-2) 11/02/17 09:56 Lymphocytes % (Manual) 8 % (20-40) L 11/02/17 09:56 Monocytes % (Manual) 4 % (0-10) 11/02/17 09:56 Platelet Estimate Normal (NORMAL) 11/02/17 09:56 RBC Morphology Normal 11/02/17 09:56 pO2 38 mm/Hg (30-55) 11/02/17 11:23 VBG pH 7.37 (7.32-7.43) 11/02/17 11:23 VBG pCO2 48 mmHg (40-60) 11/02/17 11:23 VBG HCO3 25.5 mmol/L 11/02/17 11:23 VBG Total CO2 29.2 mmol/L (22-28) H 11/02/17 11:23 VBG O2 Sat (Calc) 75.8 % (40-65) H 11/02/17 11:23 VBG Base Excess 1.7 mmol/L (0.0-2.0) 11/02/17 11:23 VBG Potassium 3.8 mmol/L (3.6-5.2) 11/02/17 11:23 Sodium 139.0 mmol/l (132-148) 11/02/17 11:23 Chloride 107.0 mmol/L (98-107) 11/02/17 11:23 Glucose 115 mg/dl (65-105) H 11/02/17 11:23 Lactate 0.7 mmol/L (0.7-2.1) 11/02/17 11:23 Sodium 139 mmol/L (132-148) 11/04/17 07:04 Potassium 3.3 mmol/L (3.6-5.2) L 11/04/17 07:04 Chloride 107 mmol/L (98-107) 11/04/17 07:04 Carbon Dioxide 24 mmol/L (22-30) 11/04/17 07:04 Anion Gap 11 (10-20) 11/04/17 07:04 BUN 5 mg/dL (7-17) L 11/04/17 07:04 Creatinine 0.5 mg/dL (0.7-1.2) L 11/04/17 07:04 Est GFR ( Amer) > 60 11/04/17 07:04 Est GFR (Non-Af Amer) > 60 11/04/17 07:04 Random Glucose 88 mg/dL (65-105) 11/04/17 07:04 Hemoglobin A1c 5.6 % (4.2-6.5) 11/03/17 08:16 Calcium 8.2 mg/dl (8.6-10.4) L 11/04/17 07:04 Phosphorus 2.4 mg/dL (2.5-4.5) L 11/04/17 07:04 Magnesium 1.8 mg/dL (1.6-2.3) 11/04/17 07:04 Total Bilirubin 0.8 mg/dL (0.2-1.3) 11/04/17 07:04 AST 40 U/L (14-36) H 11/04/17 07:04 ALT 50 U/L (9-52) 11/04/17 07:04 Alkaline Phosphatase 86 U/L (38-126) 11/04/17 07:04 Troponin I < 0.0120 ng/mL (0.00-0.120) 11/02/17 09:56 Total Protein 5.6 g/dL (6.3-8.3) L 11/04/17 07:04 Albumin 3.1 g/dL (3.5-5.0) L 11/04/17 07:04 Globulin 2.5 gm/dL (2.2-3.9) 11/04/17 07:04 Albumin/Globulin Ratio 1.3 (1.0-2.1) 11/04/17 07:04 Triglycerides 61 mg/dL (0-149) 11/02/17 18:44 Cholesterol 181 mg/dL (0-199) 11/02/17 18:44 LDL Cholesterol Direct 95 mg/dL (0-129) 11/02/17 18:44 HDL Cholesterol 63 mg/dL (30-70) 11/02/17 18:44 Lipase 1000 U/L (23-300) H 11/02/17 09:56 Free T4 0.97 ng/dL (0.78-2.19) 11/03/17 08:16 TSH 3rd Generation 2.88 mIU/L (0.46-4.68) 11/03/17 08:16 Venous Blood Potassium 3.8 mmol/L (3.6-5.2) 11/02/17 11:23 Urine Color Rosie (YELLOW) 11/02/17 09:56 Urine Clarity Clear (Clear) 11/02/17 09:56 Urine pH 5.0 (5.0-8.0) 11/02/17 09:56 Ur Specific Diamond 1.032 (1.003-1.030) H 11/02/17 09:56 Urine Protein 1+ mg/dL (NEGATIVE) H 11/02/17 09:56 Urine Glucose (UA) Normal mg/dL (Normal) 11/02/17 09:56 Urine Ketones Trace mg/dL (NEGATIVE) 11/02/17 09:56 Urine Blood 1+ (NEGATIVE) H 11/02/17 09:56 Urine Nitrate Negative (NEGATIVE) 11/02/17 09:56 Urine Bilirubin 1+ (NEGATIVE) H 11/02/17 09:56 Urine Urobilinogen 2.0 mg/dL (0.2-1.0) H 11/02/17 09:56 Ur Leukocyte Esterase Neg Dc/uL (Negative) 11/02/17 09:56 Urine WBC (Auto) 3 /hpf (0-5) 11/02/17 09:56 Urine RBC (Auto) 27 /hpf (0-3) H 11/02/17 09:56 Ur Squamous Epith Cells 1 /hpf (0-5) 11/02/17 09:56 - Hospital Course Hospital Course: 77 F with PMHx cholecystectomy, arthritis, hypothyroidism, HLD, and enlarged heart presents to the ER on November 02 complaining of abdominal pain. The pain started last night and woke her up from her sleep. She states the pain is mostly located in the left upper abdomen without radiation. She describes the pain as "pain" and feels like her whole body is achy. She states the pain was so bad today that she could barely walk. She states she feels nauseous and vomited a small amount this morning. She states she also had chills today. This is the first time she has had abdominal pain like this. She states the last thing she ate was fish yesterday. Her last bowel movement was Friday. She also states she has gained weight over the past few months which is being worked up by her PMD. Patient denies fever, chest pain, palpitations, shortness of breath , diarrhea, alcohol use, headache, or pancreatitis in the past. Patient admitted on hospital day one (11/02) with diagnosis of pancreatitis. Laboratory results showed elevated lipase (1000), leukocytosis (12.3), elevated BUN (18), and elevated glucose (127). CT imaging of abdominal/pelvis suggested mild acute pancreatitis, mild ileus, and diverticulosis without radiographic evidence of acute tear. Patient was given zofran for nausea, morphine for pain control, IVF, PPI, Heparin, SCD, and physical therapy for prophylaxis. Patient could not recall home medications. On hospital day two (11/03) patient reported improvement of her abdominal pain was was diagnosed with diverticulitis with appreciation from GI consult. Repeat abdominal/pelvis CT suggested acute diverticulitis involving a short segment of the distal descending/proximal sigmoid colon junction and did not exclude mild acute pancreatitis. Patient was started on cipro 400 mg IVPD and flagyl 500 mg IVPB in addition to other medications. Leukocytosis resolved (WBC 12.3) and most likely was secondary to pancreatitis. On hospital day three (11/04) patient reported feeling well and tolerated clear liquid diet with passing stools. Patient determined stable for discharge on oral medications. Above is a summary of the patient's hospital stay. Please refer to EMR for full details and further information. Below are the discharge instructions provided to the patient upon discharge: Patient is stable for discharge per Dr. Coleman Please fill the following prescriptions and start taking the following medications for your diverticulitis: Flagyl 500 mg three times a day for seven days Ciprofloxacin 250 mg two times a day for seven days Lactobacillus Acidophilus 1 tablet a day for forty days If the lactobacillus acidophilus is too expensive, you can substitute yogurt with probiotics twice a day. Please follow up with your primary doctor in about two weeks. If the symptoms worsen or do not improve, please return to your nearest emergency medical facility. Thank you and take. Discharge Exam - Head Exam Head Exam: ATRAUMATIC, NORMOCEPHALIC - Eye Exam Eye Exam: EOMI, Normal appearance Pupil Exam: NORMAL ACCOMODATION - Respiratory Exam Respiratory Exam: NORMAL BREATHING PATTERN, UNREMARKABLE. absent: Rhonchi, Wheezes, Respiratory Distress - Cardiovascular Exam Cardiovascular Exam: +S1, +S2. absent: Systolic Murmur - GI/Abdominal Exam GI & Abdominal Exam: Normal Bowel Sounds. absent: Firm, Guarding, Rigid - Neurological Exam Neurological exam: Alert, Normal Gait, Oriented x3 - Psychiatric Exam Psychiatric exam: Normal Affect, Normal Mood - Skin Skin Exam: Dry, Intact, Normal Color, Warm Discharge Plan - Discharge Medications Prescriptions: Ciprofloxacin [Cipro] 250 mg PO BID #14 tab Lactobacillus Acidophilus [Acidophilus] 1 each PO DAILY #40 capsule metroNIDAZOLE [Flagyl] 500 mg PO TID #21 tab - Follow Up Plan Condition: STABLE Disposition: HOME/ ROUTINE Instructions: Diverticulitis (DC) Additional Instructions: Patient is stable for discharge per Pharm Please fill the following prescriptions and start taking the following medications for your diverticulitis: Flagyl 500 mg three times a day for seven days Ciprofloxacin 250 mg two times a day for seven days Lactobacillus Acidophilus 1 tablet a day for forty days If the lactobacillus acidophilus is too expensive, you can substitute yogurt with probiotics twice a day. Please follow up with your primary doctor in about two weeks. If the symptoms worsen or do not improve, please return to your nearest emergency medical facility. Thank you and take. <Leo Dukes - Last Filed: 11/04/17 18:37> Provider - Provider Date of Admission: 11/02/17 15:51 Attending physician: Leo Dukes, DO Hospital Course - Lab Results Lab Results: Most Recent Lab Values WBC 6.7 K/uL (4.8-10.8) 11/04/17 07:04 RBC 3.24 Mil/uL (3.80-5.20) L 11/04/17 07:04 Hgb 10.5 g/dL (11.0-16.0) L 11/04/17 07:04 Hct 30.2 % (34.0-47.0) L 11/04/17 07:04 MCV 93.3 fL (81.0-99.0) 11/04/17 07:04 MCH 32.4 pg (27.0-31.0) H 11/04/17 07:04 MCHC 34.8 g/dL (33.0-37.0) 11/04/17 07:04 RDW 12.9 % (11.5-14.5) 11/04/17 07:04 Plt Count 177 K/uL (130-400) 11/04/17 07:04 MPV 10.4 fL (7.2-11.7) 11/04/17 07:04 Neut % (Auto) 70.3 % (50.0-75.0) 11/04/17 07:04 Lymph % (Auto) 19.2 % (20.0-40.0) L 11/04/17 07:04 [place] % (Auto) 8.7 % (0.0-10.0) 11/04/17 07:04 Eos % (Auto) 1.1 % (0.0-4.0) 11/04/17 07:04 Baso % (Auto) 0.7 % (0.0-2.0) 11/04/17 07:04 Neut # (Auto) 4.7 K/uL (1.8-7.0) 11/04/17 07:04 Lymph # (Auto) 1.3 K/uL (1.0-4.3) 11/04/17 07:04 [place] # (Auto) 0.6 K/uL (0.0-0.8) 11/04/17 07:04 Eos # (Auto) 0.1 K/uL (0.0-0.7) 11/04/17 07:04 Baso # (Auto) 0.0 K/uL (0.0-0.2) 11/04/17 07:04 Neutrophils % (Manual) 87 % (50-75) H 11/02/17 09:56 Band Neutrophils % 1 % (0-2) 11/02/17 09:56 Lymphocytes % (Manual) 8 % (20-40) L 11/02/17 09:56 Monocytes % (Manual) 4 % (0-10) 11/02/17 09:56 Platelet Estimate Normal (NORMAL) 11/02/17 09:56 RBC Morphology Normal 11/02/17 09:56 pO2 38 mm/Hg (30-55) 11/02/17 11:23 VBG pH 7.37 (7.32-7.43) 11/02/17 11:23 VBG pCO2 48 mmHg (40-60) 11/02/17 11:23 VBG HCO3 25.5 mmol/L 11/02/17 11:23 VBG Total CO2 29.2 mmol/L (22-28) H 11/02/17 11:23 VBG O2 Sat (Calc) 75.8 % (40-65) H 11/02/17 11:23 VBG Base Excess 1.7 mmol/L (0.0-2.0) 11/02/17 11:23 VBG Potassium 3.8 mmol/L (3.6-5.2) 11/02/17 11:23 Sodium 139.0 mmol/l (132-148) 11/02/17 11:23 Chloride 107.0 mmol/L (98-107) 11/02/17 11:23 Glucose 115 mg/dl (65-105) H 11/02/17 11:23 Lactate 0.7 mmol/L (0.7-2.1) 11/02/17 11:23 Sodium 139 mmol/L (132-148) 11/04/17 07:04 Potassium 3.3 mmol/L (3.6-5.2) L 11/04/17 07:04 Chloride 107 mmol/L (98-107) 11/04/17 07:04 Carbon Dioxide 24 mmol/L (22-30) 11/04/17 07:04 Anion Gap 11 (10-20) 11/04/17 07:04 BUN 5 mg/dL (7-17) L 11/04/17 07:04 Creatinine 0.5 mg/dL (0.7-1.2) L 11/04/17 07:04 Est GFR ( Amer) > 60 11/04/17 07:04 Est GFR (Non-Af Amer) > 60 11/04/17 07:04 Random Glucose 88 mg/dL (65-105) 11/04/17 07:04 Hemoglobin A1c 5.6 % (4.2-6.5) 11/03/17 08:16 Calcium 8.2 mg/dl (8.6-10.4) L 11/04/17 07:04 Phosphorus 2.4 mg/dL (2.5-4.5) L 11/04/17 07:04 Magnesium 1.8 mg/dL (1.6-2.3) 11/04/17 07:04 Total Bilirubin 0.8 mg/dL (0.2-1.3) 11/04/17 07:04 AST 40 U/L (14-36) H 11/04/17 07:04 ALT 50 U/L (9-52) 11/04/17 07:04 Alkaline Phosphatase 86 U/L (38-126) 11/04/17 07:04 Troponin I < 0.0120 ng/mL (0.00-0.120) 11/02/17 09:56 Total Protein 5.6 g/dL (6.3-8.3) L 11/04/17 07:04 Albumin 3.1 g/dL (3.5-5.0) L 11/04/17 07:04 Globulin 2.5 gm/dL (2.2-3.9) 11/04/17 07:04 Albumin/Globulin Ratio 1.3 (1.0-2.1) 11/04/17 07:04 Triglycerides 61 mg/dL (0-149) 11/02/17 18:44 Cholesterol 181 mg/dL (0-199) 11/02/17 18:44 LDL Cholesterol Direct 95 mg/dL (0-129) 11/02/17 18:44 HDL Cholesterol 63 mg/dL (30-70) 11/02/17 18:44 Lipase 1000 U/L (23-300) H 11/02/17 09:56 Free T4 0.97 ng/dL (0.78-2.19) 11/03/17 08:16 TSH 3rd Generation 2.88 mIU/L (0.46-4.68) 11/03/17 08:16 Venous Blood Potassium 3.8 mmol/L (3.6-5.2) 11/02/17 11:23 Urine Color Rosie (YELLOW) 11/02/17 09:56 Urine Clarity Clear (Clear) 11/02/17 09:56 Urine pH 5.0 (5.0-8.0) 11/02/17 09:56 Ur Specific Diamond 1.032 (1.003-1.030) H 11/02/17 09:56 Urine Protein 1+ mg/dL (NEGATIVE) H 11/02/17 09:56 Urine Glucose (UA) Normal mg/dL (Normal) 11/02/17 09:56 Urine Ketones Trace mg/dL (NEGATIVE) 11/02/17 09:56 Urine Blood 1+ (NEGATIVE) H 11/02/17 09:56 Urine Nitrate Negative (NEGATIVE) 11/02/17 09:56 Urine Bilirubin 1+ (NEGATIVE) H 11/02/17 09:56 Urine Urobilinogen 2.0 mg/dL (0.2-1.0) H 11/02/17 09:56 Ur Leukocyte Esterase Neg Dc/uL (Negative) 11/02/17 09:56 Urine WBC (Auto) 3 /hpf (0-5) 11/02/17 09:56 Urine RBC (Auto) 27 /hpf (0-3) H 11/02/17 09:56 Ur Squamous Epith Cells 1 /hpf (0-5) 11/02/17 09:56 Attending/Attestation - Attestation I have personally seen and examined this patient.: Yes I have fully participated in the care of the patient.: Yes I have reviewed all pertinent clinical information, including history, physical exam and plan: Yes Notes (Text): 11/04/17 18:37 Medical attending: Patient was seen and examined by me, agrees the above note by medical illustrator. As mentioned yesterday the patient had a second CAT scan done which suggested that the patient was having acute diverticulitis. The second CAT scan also suggested that she might be having a very mild pancreatitis. As mentioned previously she was first admitted for pancreatitis. The first CAT scan that she had on November 02 suggested just pancreatitis and did not mention anything about the diverticulitis. After the second CAT scan was done, the patient was started on IV Cipro and IV Flagyl and the subsequent day she felt much better She explained to us that she was tolerating her diet she did not have any pain on her abdomen when we saw her. And so we've decided to discharge her, but we' ve explained to her with the help of metal stud framer that she needs to take this Flagyl and Cipro by mouth even if she's feeling well. Thank you very much, Leo Dukes
--- NOTE | 2017-11-04 16:08 | CARD ---
APPROVED REPORT Date of service: 11/02/2017 EKG Measurement Heart [id number] <Conclusion> Normal sinus rhythm Low voltage QRS Nonspecific ST and T wave abnormality Abnormal ECG
[2017-11-04 17:09] VITALS: BP 110/62; TEMP 98.9
[2017-11-05] MEDS ORDERED: Potassium Chloride 20 mEq ER Tab PO ONE (14:00)
== END 2017-11-04 17:55 | disposition home or self-care (01) | DRG 439 ==
LOC: C.ER 09:34 → C.9E 15:51 → C.6T 17:48 → C.3T 18:36
PROVIDERS: ADMIT Hospitalist; ATTEND Hospitalist
DX: K85.90 Acute pancreatitis without necrosis or infection, unspecified (principal); K57.32 Diverticulitis of large intestine without perforation or abscess without bleeding; K56.7 Ileus, unspecified; E78.00 Pure hypercholesterolemia, unspecified; E03.9 Hypothyroidism, unspecified; M19.90 Unspecified osteoarthritis, unspecified site; Z90.49 Acquired absence of other specified parts of digestive tract; K29.70 Gastritis, unspecified, without bleeding